=== PATIENT | female | born 1990 | race Caucasian/White ===

== ENCOUNTER → 2021-07-16 | Outpatient (CLI) | payer OTHER ==
[~2021-07-16] MED LIST: COLACE 100MG C100 MG PO
== END ==
LOC: EXRD 15:25
DX: I82.4Y9 Acute embolism and thrombosis of unspecified deep veins of unspecified proximal lower extremity (principal)
CPT/HCPCS: 93970

== ENCOUNTER → 2022-04-21 | Outpatient (CLI) | payer OTHER | LOC: MRI 04-08 09:00 → EMI 09:00 → MRI 09:00 | DX: H93.13 Tinnitus, bilateral (principal); H90.3 Sensorineural hearing loss, bilateral | CPT/HCPCS: 70553; A9577 ==